=== PATIENT | male | born 1995 | race Caucasian/White ===

== ENCOUNTER 2018-08-15 16:20 | Emergency (ER) | payer MEDICAID ==
[~2018-08-15] VITALS: Ht 175.3 cm; Wt 83.9 kg
[2018-08-15 16:26] VITALS: BP_SYST 134
[2018-08-15] MEDS ORDERED: MAG HYDROX/AL HYDROX/SIMETH 30 ML, DICYCLOMINE HCL 20 MG, LIDOCAINE VISCOUS 2% 15ML (PO... PO ONE ×3 (17:30)
[2018-08-15 17:50] VITALS: BP_SYST 120
== END 2018-08-15 17:50 | disposition home or self-care (01) ==
LOC: SED 16:20
DX: R10.10 Upper abdominal pain, unspecified (principal); R11.2 Nausea with vomiting, unspecified
CPT/HCPCS: 74018; 99283; J2001